=== PATIENT | female | born 1990 | race Caucasian/White ===

== ENCOUNTER 2017-06-12 19:13 | Inpatient (IN) | payer OTHER ==
[~2017-06-12] VITALS: Ht 175.3 cm; Wt 199.0 kg
--- NOTE | ~2017-06-12 | CT2 ---
[facility] A Service of [facility] & [facility] RADIOLOGY TEXT RESULTS PATIENT: RICARDO BRADLEY LOCATION: C2A 227-01 : [birth year] UNIT #: [id number] AGE: [address]: Gonsalo Milian III, MD SEX: F ORDER DR: [id number] [facility] [address] [facility]. [place], [place] [address] [id number] I MR#: [id number] Acc #: [id number] NAME: RICARDO BRADLEY : 1990 SEX: F STUDY DATE/TIME: 06/12/2017 22:20 UNIT: A ROOM: 227 STUDY DESCRIPTION: CT Abd and Pelv W Cont Attending Physician: Gonsalo Milian III, M.D. Ordering Physician: Kay Dyson P.A.-C. Primary Care Physician: Primary Care Physician No MEDICAL IMAGING REPORT This report is preliminary unless electronic signature is present EXAM CT abdomen and pelvis, 06/12/2017 at 22:20 INDICATIONS Abdominal pain for 1 week with shortness of air. TECHNIQUE Axial images were obtained through the abdomen and pelvis following IV contrast administration. Multiplanar reformats were obtained. No comparison abdomen or pelvis CT. This CT exam was performed with one or more of the following radiation dose reduction techniques: automatic exposure control, adjustment of mA and/or kV according to patient size, and iterative reconstruction. FINDINGS ABDOMEN: For description of findings in the lung bases, please see the chest CT report dictated separately. Gallbladder unremarkable. Solid organs are normal. Unopacified GI tract is normal. No free fluid is seen. PELVIS: IUD present in the uterus. Urinary bladder is normal. There is marked abnormal fat stranding centered in the right hemipelvis. No well-defined abscess is seen in this location. Exam is degraded by the lack of oral contrast. The terminal ileum appears normal. Sigmoid colon appears normal. The cecum is normal. This could potentially reflect small bowel inflammation extending into the mesentery. Acute appendicitis is in the differential diagnosis. A clearly enlarged appendix is not seen. This could also potentially be related to the right ovary. Correlate with patient physical exam findings and laboratory data. If ovarian lesion is of concern, consider pelvic ultrasound. IMPRESSION [facility] A Service of [facility] & [facility] RADIOLOGY TEXT RESULTS PATIENT: RICARDO BRADLEY LOCATION: A 227-01 : [birth year] UNIT #: [id number] AGE: [address]: Gonsalo Milian III, MD SEX: F ORDER DR: 1. The abdomen is normal. 2. IUD in the uterus. 3. Marked inflammatory fat stranding in the right central pelvis. Exact etiology is unclear, especially given the lack of oral contrast. A primary enteritis is favored. However, potentially ruptured acute appendicitis could have this appearance. It could theoretically be related to the right ovary as well although this is felt to be less likely. No clearly enlarged fluid-filled appendix is identified. The adjacent cecum and terminal ileum are normal. The sigmoid colon is normal. If ovarian pathology is of concern, this could be assessed with ultrasound. Otherwise, consider surgical consult. Dictated by... Maurizio Kaur Jr., M.D. THIS IS AN ELECTRONICALLY VERIFIED REPORT Maurizio Kaur Jr., M.D. at 06/13/2017 6:00 AM MILKA/christopher TD: 06/13/2017 04:06 JOB #: [id number] MEDICAL IMAGING REPORT Page 1 of 1 COPY
--- NOTE | ~2017-06-12 | CO ---
Unit #: [id number] #: [id number] Patient: RICARDO BRADLEY [id number] [address] [address] [id number] I MR#: [id number] NAME: RICARDO BRADLEY ROOM: 478 Age: 26 Sex: F Admission Date: 06/13/2017 : 1990 Attending Physician: Gonsalo Milian III, M.D. Primary Care Physician: Ghazal Primary Care Physician Consultation Date: 06/16/2017 CONSULTATION REPORT REASON FOR CONSULTATION Medical management. HISTORY OF PRESENT ILLNESS The patient is a 26-year-old female with past medical history of hypothyroidism, morbid obesity who was admitted by Dr. Milian on June 13 for abdominal pain. The patient states that she had a one-week history of abdominal pain in the right lower quadrant. She ultimately underwent appendectomy. She also reports irregular menses as well as vaginal discharge. She was checked for bacterial vaginosis as well as Trichomonas in the emergency department that were both negative. Gonorrhea and Chlamydia were also checked. She was noted to be positive for gonorrhea. HIPS was consulted for that reason. The patient states that she is sexually active with her boyfriend who is HIV positive. She does not use any type of protection. She does have Mirena for control purposes. She states that she has been having vaginal discharge for about a week. She was treated for Chlamydia a month ago. PAST MEDICAL HISTORY 1. Hypothyroidism. 2. Dysfunctional uterine bleeding. PAST SURGICAL HISTORY 1. Appendectomy. 2. Tonsillectomy. 3. Elective . SOCIAL HISTORY The patient lives with her boyfriend. She smokes a half pack cigarettes daily. She denies illicit drug use. She states that she is a daily drinker and typically drinks five to six shots daily. FAMILY HISTORY Notable for there being no family history of hypertension or diabetes. ALLERGIES None. HOME MEDICATIONS None. REVIEW OF SYSTEMS Unit #: [id number] #: [id number] Patient: RICARDO BRADLEY A complete review of systems is negative except as indicated in the HPI. DIAGNOSTIC STUDIES LABORATORY: Urine culture from June 12, 2017 showed no growth after 48 hours. IMAGING: CT of the abdomen and pelvis from June 12, 2017, showed an IUD within the uterus, marked inflammatory stranding in the right central pelvis. PHYSICAL EXAMINATION VITAL SIGNS: Temperature 98.4, pulse 59, respirations 20, blood pressure 135/82, oxygen saturation 98% on room air. GENERAL: The patient is a female who is awake and alert in no acute distress. HEENT: The head is atraumatic. Mucous membranes are moist. NECK: Supple. Trachea is midline. CARDIOVASCULAR: Regular rate and rhythm. LUNGS: Clear to auscultation bilaterally with no increased work of breathing. ABDOMEN: Obese, soft with bowel sounds present in all four quadrants. She does have Steri-Strips in place. EXTREMITIES: Nontender with no pedal edema. NEUROLOGIC: The patient is awake and alert. She follows commands. PSYCHIATRIC: Mood and affect are normal. The patient is cooperative. SKIN: Skin of examined areas is warm and dry. ASSESSMENT The patient is a 26-year-old female with: 1. Status post appendectomy. 2. Gonorrhea: The patient does not use protection. She was recently treated for Chlamydia. Her boyfriend is human immunodeficiency virus positive. She refuses any additional sexually transmitted disease workup today including human immunodeficiency virus and hepatitis panel. She prefers to followup at the specialty clinic. 3. Dysfunctional uterine bleeding. 4. Morbid obesity with a body mass index of 64. 5. Hypothyroidism. 6. Alcohol abuse. 7. Tobacco abuse. PLAN Regarding gonorrhea, I have ordered Rocephin as well as azithromycin. The patient refused any additional sexually transmitted disease testing including human immunodeficiency virus or hepatitis. I advised using condoms. She will follow up in the specialty clinic. She has also been given a prescription for Levaquin by surgery. I would also advise that the patient follow up with her director behavioral health regarding abnormal CT and stranding in the right central pelvis. Dictated by... Padmini Martin M.D. DIONNE/jas TD: 06/16/2017 13:25 Unit #: [id number] #: [id number] Patient: RICARDO BRADLEY JOB #: [id number] CONSULTATION REPORT Page 1 of 1 X Padmini Martin MD X CONSULTATION REPORT
--- NOTE | ~2017-06-12 | DS ---
Unit #: [id number] #: [id number] Patient: RICARDO BRADLEY [id number] [address] [address] [id number] I MR#: [id number] NAME: RICARDO BRADLEY ROOM: 478 Age: 26 Sex: F Admission Date: 06/13/2017 : 1990 Discharge Date: 06/16/2017 Attending Physician: Gonsalo Milian III, M.D. Primary Care Physician: Ghazal Primary Care Physician DISCHARGE SUMMARY DIAGNOSES 1. Pelvic inflammatory disease. 2. Periappendicitis. PROCEDURE Laparoscopic appendectomy. HOSPITAL COURSE The patient is a 26-year-old lady who presented with right lower quadrant abdominal pain. CT scan showed inflammatory changes of the right lower quadrant but not a discrete appendicitis. She underwent the aforementioned procedures. She was found to have an inflammatory process in right lower quadrant, likely pelvic inflammatory disease. Pathology returned periappendicitis. Her hospital course was basically one of antibiotics. She defervesced. Her white count came down to normal and her pain improved. DISPOSITION The patient will be discharged home in good condition. DIET She is to follow a regular diet as tolerated. ACTIVITY Activity levels were discussed. FOLLOWUP She is to follow up with Dr. Adair in two weeks. DISCHARGE MEDICATIONS Medications are regular home medications and [place] 7.5 mg q.4 p.r.n., Levaquin 500 mg q.24 x7 days. Dictated by... Bhupinder Thomason/jas TD: 06/16/2017 08:44 JOB #: [id number] Unit #: [id number] #: [id number] Patient: RICARDO BRADLEY DISCHARGE SUMMARY Page 1 of 1 X Percy Adair MD DISCHARGE SUMMARY
--- NOTE | ~2017-06-12 | CR63 ---
[facility] A Service of [facility] & [facility] RADIOLOGY TEXT RESULTS PATIENT: RICARDO BRADLEY LOCATION: [place] [address] : [birth year] UNIT #: [id number] AGE: [address]: Gonsalo Milian III, MD SEX: F ORDER DR: [id number] [facility] [address] [facility]. [place], [place] [address] [id number] E MR#: [id number] Acc #: [id number] NAME: RICARDO BRADLEY : 1990 SEX: F STUDY DATE/TIME: 06/12/2017 21:33 UNIT: [facility] ROOM: STUDY DESCRIPTION: CR Chest 2 View Attending Physician: Amarjit Daniel D.O. Ordering Physician: Kay Dyson P.A.-C. Primary Care Physician: Primary Care Physician No MEDICAL IMAGING REPORT This report is preliminary unless electronic signature is present EXAM Chest PA and lateral, 06/12/2017 HISTORY Shortness of breath, chest pain when breathing. Symptoms for 1 week. FINDINGS PA and lateral examination of the chest upright shows a good expansion of the parenchyma with a normal distribution of the pulmonary vascularity. There is no indication of congestion, effusion, infiltrate, tumor, or nodular density. The pleural reflections and diaphragmatic contours are normal. The cardiac silhouette and mediastinal anatomy is within normal limits. IMPRESSION Normal chest. Dictated by... Alfonzo Farris M.D. THIS IS AN ELECTRONICALLY VERIFIED REPORT Alfonzo Farris M.D. at 06/13/2017 2:09 PM AMALIA/christopher TD: 06/12/2017 23:44 JOB #: [id number] MEDICAL IMAGING REPORT Page 1 of 1 COPY
--- NOTE | ~2017-06-12 | CO ---
Unit #: [id number] #: [id number] Patient: RICARDO BRADLEY [id number] [address] [address] [id number] I MR#: [id number] NAME: RICARDO BRADLEY ROOM: 478 Age: 26 Sex: F Admission Date: 06/13/2017 : 1990 Attending Physician: Gonsalo Milian III, M.D. Consultation Date: 06/16/2017 CONSULTATION REPORT 2nd REVISION See Addendum REASON FOR CONSULTATION Medical management. HISTORY OF PRESENT ILLNESS The patient is a 26-year-old female with past medical history of hypothyroidism, morbid obesity who was admitted by Dr. Milian on June 13 for abdominal pain. The patient states that she had a one-week history of abdominal pain in the right lower quadrant. She ultimately underwent appendectomy. She also reports irregular menses as well as vaginal discharge. She was checked for bacterial vaginosis as well as Trichomonas in the emergency department that were both negative. Gonorrhea and Chlamydia were also checked. She was noted to be positive for gonorrhea. HIPS was consulted for that reason. The patient states that she is sexually active with her boyfriend who is HIV positive. She does not use any type of protection. She does have Mirena for control purposes. She states that she has been having vaginal discharge for about a week. She was treated for Chlamydia a month ago. PAST MEDICAL HISTORY 1. Hypothyroidism. 2. Dysfunctional uterine bleeding. PAST SURGICAL HISTORY 1. Appendectomy. 2. Tonsillectomy. 3. Elective . SOCIAL HISTORY The patient lives with her boyfriend. She smokes a half pack cigarettes daily. She denies illicit drug use. She states that she is a daily drinker and typically drinks five to six shots daily. FAMILY HISTORY Notable for there being no family history of hypertension or diabetes. ALLERGIES None. HOME MEDICATIONS Unit #: [id number] #: [id number] Patient: RICARDO BRADLEY None. REVIEW OF SYSTEMS A complete review of systems is negative except as indicated in the HPI. DIAGNOSTIC STUDIES LABORATORY: Urine culture from June 12, 2017 showed no growth after 48 hours. IMAGING: CT of the abdomen and pelvis from June 12, 2017, showed an IUD within the uterus, marked inflammatory stranding in the right central pelvis. PHYSICAL EXAMINATION VITAL SIGNS: Temperature 98.4, pulse 59, respirations 20, blood pressure 135/82, oxygen saturation 98% on room air. GENERAL: The patient is a female who is awake and alert in no acute distress. HEENT: The head is atraumatic. Mucous membranes are moist. NECK: Supple. Trachea is midline. CARDIOVASCULAR: Regular rate and rhythm. LUNGS: Clear to auscultation bilaterally with no increased work of breathing. ABDOMEN: Obese, soft with bowel sounds present in all four quadrants. She does have Steri-Strips in place. EXTREMITIES: Nontender with no pedal edema. NEUROLOGIC: The patient is awake and alert. She follows commands. PSYCHIATRIC: Mood and affect are normal. The patient is cooperative. SKIN: Skin of examined areas is warm and dry. ASSESSMENT The patient is a 26-year-old female with: 1. Status post appendectomy. 2. Gonorrhea: The patient does not use protection. She was recently treated for Chlamydia. Her boyfriend is human immunodeficiency virus positive. She refuses any additional sexually transmitted disease workup today including human immunodeficiency virus and hepatitis panel. She prefers to followup at the specialty clinic. 3. Dysfunctional uterine bleeding. 4. Morbid obesity with a body mass index of 64. 5. Hypothyroidism. 6. Alcohol abuse. 7. Tobacco abuse. PLAN Regarding gonorrhea, I have ordered Rocephin as well as azithromycin. The patient refused any additional sexually transmitted disease testing including human immunodeficiency virus or hepatitis. I advised using condoms. She will follow up in the specialty clinic. She has also been given a prescription for Levaquin by surgery. I would also advise that the patient follow up with her shaper and presser regarding abnormal CT and stranding in the right central pelvis. Dictated by... Bhupinder Carey Unit #: [id number] #: [id number] Patient: RICARDO BRADLEY TD: 06/16/2017 13:25 JOB #: [id number] ADDENDUM PLAN (CONTINUED) I have also given the patient a prescription for doxycycline 100 mg p.o. b.i.d. for 14 days. I have advised that she follow up with her shaper and presser regarding possible PID and specifically regarding if the patient needs to have her IUD removed. The patient states that she sees Dr. Gavin with [facility] and will follow up with him this week. As stated above, she also received Rocephin, as well as azithromycin here in the hospital for gonorrhea and possible PID. The patient expressed understanding of the treatment plan. She agrees to follow up with both the shaper and presser and the speciality clinic. Dictated by... Padmini Martin M.D. Allison TD: 06/16/2017 14:10 JOB #: [id number] CONSULTATION REPORT Page 1 of 1 X Padmini Martin MD X CONSULTATION REPORT
--- NOTE | ~2017-06-12 | BMI ---
[facility] Nutrition Therapy DATE: 06/13/17 Patient: RICARDO BRADLEY Physician: COLBY Address: [address] Room/Bed: [address] [place] [address], Zip: [place] [address] Admit Date: 06/13/17 Date of : [birth year] Height: 5 9 Weight: 438 199 HIGH BMI NOTE: DX: 26 y/o female admitted with abdominal pain ANTHROPOMETRICS: Ht: 69", Wt: 199 kg, BMI: 64 (stage III obese) DIET: NPO INTERVENTION: Restricted diet, meds/fluids per MD RECOMMENDATIONS: Once medically feasible advance to healthy heart diet to promote a gradual weight loss towards a healthy BMI range. Respectfully, Ketty Kelsey RD, LD Food and Nutritional Services [facility] cc: client file
--- NOTE | ~2017-06-12 | CO ---
Unit #: [id number] #: [id number] Patient: RICARDO BRADLEY [id number] [place] [id number] [facility]. [place], [place] [address] [id number] I MR#: [id number] NAME: RICARDO BRADLEY. ROOM: 227 Age: 26 Sex: F Admission Date: 06/13/2017 : 1990 Attending Physician: Gonsalo Milian III, M.D. Primary Care Physician: No Primary Care Physician Consultation Date: 06/13/2017 CONSULTATION REPORT CHIEF COMPLAINT Right lower quadrant pain. HISTORY OF PRESENT ILLNESS This is a 26-year-old lady who is morbidly obese, who has had a one week history of crampy lower abdominal pain that she initially attributed to gas and constipation. It started last and she has had trouble going to work because the pain has gotten worse. It is worse with deep breathing. She also for the last 24 hours has had a sharp stabbing pain in the right lower quadrant. She denies any burning with urination or any nausea or vomiting. She does say she does appreciate the pain a little bit more when she does urinate. PAST MEDICAL HISTORY Significant for hypothyroidism, but she is not taking any medications for it. PAST SURGICAL HISTORY She has had an and tonsillectomy. ALLERGIES No known drug allergies. MEDICATIONS She is on no medications. SOCIAL HISTORY She does smoke. She denies any alcohol use. FAMILY HISTORY Negative for any abdominal cancers. REVIEW OF SYSTEMS Negative for fevers, weight loss or jaundice since otherwise as above. PHYSICAL EXAMINATION VITAL SIGNS: Temperature is 97.9, heart rate 63, respiratory rate 18, blood pressure 156/92, BMI is 64. She is in no acute distress. HEENT: Pupils equal, round, reactive to light and accommodation. Extraocular muscles are intact. NECK: Without masses or bruits. LUNGS: Show good breath sounds bilaterally with equal air exchange. CARDIAC: Regular rate and rhythm without murmur. ABDOMEN: Soft, morbidly obese, nondistended and she has 3+ tenderness in Unit #: [id number] #: [id number] Patient: RICARDO BRADLEY the right lower quadrant. EXTREMITIES: Without edema or cyanosis. NEUROLOGIC: She is alert and oriented. There is no focal deficits. DIAGNOSTIC STUDIES LABORATORY STUDIES: White blood count was 14,000, on admission is 9.7 this morning hemoglobin is 12.8. Urinalysis did show 3+ leukocyte esterase and bacteria but also there was some squamous cells present. IMAGING STUDIES: CT scan was equivocal but couldn't rule out appendicitis. OVERALL IMPRESSION This is a 26-year-old lady who has right lower quadrant pain. It would be hard to say that her urinalysis would be causing this degree of right lower quadrant tenderness on exam. Certainly there is a possibility that she could have an appendicitis versus a ruptured ovarian cyst. I discussed diagnostic laparoscopy, possible appendectomy and she understands the procedure and wishes to proceed. Dictated by... Gonsalo Milian III, M.D. VCL/cameron TD: 06/13/2017 07:24 JOB #: [id number] CONSULTATION REPORT Page 1 of 1 X Gonsalo Milian III, MD X CONSULTATION REPORT
--- NOTE | ~2017-06-12 | CT16 ---
[facility] A Service of [facility] & [facility] RADIOLOGY TEXT RESULTS PATIENT: RICARDO BRADLEY LOCATION: C2A 227- : [birth year] UNIT #: [id number] AGE: [address]: Gonsalo Milian III, MD SEX: F ORDER DR: [id number] [facility] [address] [facility]. [place], [place] [address] [id number] I MR#: [id number] Acc #: [id number] NAME: RICARDO BRADLEY : 1990 SEX: F STUDY DATE/TIME: 06/12/2017 22:20 UNIT: [facility] ROOM: [facility] STUDY DESCRIPTION: CT Angio Chest for PE Attending Physician: Gonsalo Milian III, M.D. Ordering Physician: Kay Dyson P.A.-C. Primary Care Physician: Primary Care Physician No MEDICAL IMAGING REPORT This report is preliminary unless electronic signature is present EXAM CT scan of the chest with contrast 06/12/2017 HISTORY Shortness of breath, hurts to breathe. Left side chest pain for 1 week. Elevated D-dimer today 2044. Evaluate for pulmonary embolus. TECHNIQUE Spiral CT was performed through the chest following intravenous contrast administration using pulmonary embolus protocol. 3-D reconstructions of the chest were then performed following intravenous contrast administration. All CT scans at this facility use dose modulation, iterative reconstruction, and/or weight-based dosing to reduce radiation dose to as low as reasonably achievable. FINDINGS There is no CT evidence for pulmonary embolus. The heart is normal in size. There is a 3.9 cm x 3.7 cm cystic lesion in the anterior mediastinum. 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 Clinical correlation is recommended. Additional differential considerations include thymoma. Recommend follow-up chest CT with contrast in 6 months to assess for stability. No significant adenopathy is seen. There are no pleural effusions. The lungs are clear. IMPRESSION 1. No CT evidence for pulmonary embolus. 2. 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 Clinical correlation recommended. Additional diagnostic consideration includes thymoma. Recommend follow-up chest CT in 6 months to assess for stability. [facility] A Service of [facility] & [facility] RADIOLOGY TEXT RESULTS PATIENT: RICARDO BRADLEY LOCATION: [facility] 227-01 : [birth year] UNIT #: [id number] AGE: [address]: Gonsalo Milian III, MD SEX: F ORDER DR: Dictated by... Alfonzo Farris M.D. THIS IS AN ELECTRONICALLY VERIFIED REPORT Alfonzo Farris M.D. at 06/13/2017 2:35 PM AMALIA/christopher TD: 06/13/2017 04:51 JOB #: [id number] MEDICAL IMAGING REPORT Page 1 of 1 COPY
--- NOTE | ~2017-06-12 | OR ---
Unit #: [id number] #: [id number] Patient: RICARDO BRADLEY [id number] [address] [place], [place] [address] [id number] MR#: [id number] NAME: RICARDO BRADLEY. ROOM: [id number] Date of Procedure: 06/13/2017 Admission Date: 06/13/2017 Surgeon: Percy Adair M.D. : 1990 Attending Physician: Gonsalo Milian III, M.D. Primary Care Physician: Primary Care Physician No OPERATIVE REPORT PREOPERATIVE DIAGNOSIS Right lower quadrant pain, possible appendicitis. POSTOPERATIVE DIAGNOSES 1. Periappendicitis. 2. Tubo-ovarian abscess. PROCEDURES PERFORMED 1. Diagnostic laparoscopy. 2. Laparoscopic drainage of right lower quadrant abscess. 3. Laparoscopic appendectomy. [employer] SAL[employer] None. ANESTHESIA General. ESTIMATED BLOOD LOSS 50 mL. IV FLUIDS 900 crystalloid. COMPLICATIONS None. INDICATIONS FOR PROCEDURE The patient is a 26-year-old, who presents with right lower quadrant abdominal pain. Physical exam is consistent with early appendicitis versus gynecological problem. She presents for diagnostic laparoscopy. DESCRIPTION OF PROCEDURE The patient was taken to the operating theater and placed in a supine position. General anesthesia was induced. Her abdomen was prepped and draped. A 5-mm Optiview trocar was placed in left of the umbilicus. The abdomen was insufflated to 15 mmHg with CO2. I placed a right lower quadrant 12 mm and left lower quadrant 5 mm. General inspection of the abdomen revealed bloody purulent fluid in the right lower quadrant. There appeared to be a phlegmon down in the right lower quadrant at the area where the ovary and the tubes were. There appeared to be a gross inflammation and multiple interloop abscesses. These were broken down. I Unit #: [id number] #: [id number] Patient: RICARDO BRADLEY identified the cecum as well as the appendix. The appendix was grossly inflamed, but it was unsure whether or not this was the etiology or secondary to a tubo-ovarian process. I was able to mobilize the appendix, fired a TOMASZ stapler across the mesoappendix as well as the base of the appendix. This was then placed in an Endobag and removed. I irrigated thoroughly with normal saline and aspirated all fluids dry including sending some cultures. I saw no abnormalities of the sigmoid colon, although there was a global inflammation of the small bowel. I saw no evidence of perforation. I then left a Jadiel-Bolden drain, brought out through the left lower quadrant port site, secured in place with 2-0 silk. I then closed the fascia in the right lower quadrant with Endo Close and the skin with 4-0 suture. The patient tolerated the procedure well and was sent to recovery room in good condition. Dictated by... Bhupinder Thomason/ceci TD: 06/14/2017 06:50 JOB #: [id number] OPERATIVE REPORT Page 1 of 1 X Percy Adair MD X PROCEDURE OPERATIVE NOTE
[~2017-06-12 19:13] MED LIST: ADDERALL PO; AMOXIL500 M1 PO; BACTRIM DS TABL1 TA1 PO; FIRST-PROG25 MG/SUPP; MACROBID100 MG PO; PRENATAL VITAMI1 TA3 PO; PYRIDIUM PO; SYNTHROID PO; SYNTHROID0.1 MG; VICODIN 5/500 T1 TAB PO
[2017-06-12 20:25] LABS: URINE SOURCE CLEAN CATCH
[2017-06-12 20:30] LABS: URINE APPEARANCE TURBID; URINE BILIRUBIN NEG (NEG); URINE BLOOD 3+ (NEG); URINE COLOR YELLOW; URINE GLUCOSE NEG (NEG); URINE KETONE NEG (NEG); URINE LEUKOCYTE ESTERASE 3+ (NEG); URINE NITRATE NEG (NEG); URINE PROTEIN 1+ (NEG); URINE SPECIFIC GRAVITY 1.009 (1.003-1.035); URINE UROBILINOGEN 0.2 MG/DL (NEG)
[2017-06-12 20:35] LABS: CULTURE INDICATED? YES; URINE BACTERIA AUWI 4+ (NEGATIVE); URINE SQUAMOUS EPITHELIAL CELL MOD /[HPF]; UWBCS1 AUWI INNUM (0-5)
[2017-06-12 21:13] LABS: BASOPHIL# 0.2 X10e3 (0-0.3); BASOPHIL% 1.3 % (0-2.5); EOSINOPHIL# 0.1 X10e3 (0-0.7); EOSINOPHIL% 0.9 % (0.0-7.0); HEMATOCRIT 39.5 % (35.0-45.0); HEMOGLOBIN 13.2 gm/dL (12.0-16.0); LYMPHOCYTE# 1.8 X10e3 (1.0-3.5); MEAN CELL VOLUME 100.6 FL (83-96); MEAN CORPUSCULAR HEMOGLOBIN 33.8 PG (28-34); MEAN CORPUSCULAR HGB CONC 33.6 g/dL (30-36); MEAN PLATELET VOLUME 8.4 FL (6.5-11.5); MONOCYTE# 1.1 X10e3 (0-1.0); MONOCYTE% 7.5 % (3.0-12.0); NEUTROPHIL# 10.9 X10e3 (1.5-7.1); NEUTROPHIL% 77.3 % (40-75); PLATELET COUNT 261 X10e3 (140-420); RED BLOOD COUNT 3.92 X10e (3.90-5.30); RED CELL DISTRIBUTION WIDTH 13.2 % (11.0-15.5); WHITE BLOOD COUNT 14.1 X10e3 (4.0-10.5)
[2017-06-12 21:20] LABS: DIFF IND NO
[2017-06-12 21:35] LABS: ALBUMIN SERUM 3.5 g/dL (3.5-5.0); BILIRUBIN, DIRECT 0.1 mg/dL (0.0-0.2); BILIRUBIN,INDIRECT 0.6 mg/dL (0.0-0.9); BILIRUBIN,TOTAL 0.7 mg/dL (0.2-2.0); BUN/CREATININE RATIO 7.27; CALCIUM SERUM 8.5 mg/dL (8.4-10.2); CREATININE SERUM 1.1 mg/dL (0.6-1.4); GLOM FILT RATE Estimated 68.8 mL/min (>60); POTASSIUM 3.2 mmol/L (3.5-5.1); PROTEIN TOTAL SERUM 7.4 g/dL (6.0-8.3)
[2017-06-13] MEDS ORDERED: NO MEDICATIONS (04:05)
[2017-06-13 05:33] LABS: HEMATOCRIT 37.6 % (35.0-45.0); HEMOGLOBIN 12.8 gm/dL (12.0-16.0); MEAN CELL VOLUME 102.3 FL (83-96); MEAN CORPUSCULAR HEMOGLOBIN 34.9 PG (28-34); MEAN CORPUSCULAR HGB CONC 34.1 g/dL (30-36); MEAN PLATELET VOLUME 8.4 FL (6.5-11.5); RED BLOOD COUNT 3.68 X10e (3.90-5.30); RED CELL DISTRIBUTION WIDTH 13.4 % (11.0-15.5); WHITE BLOOD COUNT 9.7 X10e3 (4.0-10.5)
[2017-06-14 02:34] LABS: BASOPHIL# 0.2 X10e3 (0-0.3); BASOPHIL% 1.3 % (0-2.5); EOSINOPHIL% 0.1 % (0.0-7.0); HEMATOCRIT 41.5 % (35.0-45.0); HEMOGLOBIN 13.6 gm/dL (12.0-16.0); LYMPHOCYTE# 1.1 X10e3 (1.0-3.5); LYMPHOCYTE% 7.6 % (17.0-45.0); MEAN CELL VOLUME 103.2 FL (83-96); MEAN CORPUSCULAR HEMOGLOBIN 33.8 PG (28-34); MEAN CORPUSCULAR HGB CONC 32.7 g/dL (30-36); MEAN PLATELET VOLUME 8.7 FL (6.5-11.5); MONOCYTE# 0.6 X10e3 (0-1.0); MONOCYTE% 4.5 % (3.0-12.0); NEUTROPHIL% 86.5 % (40-75); PLATELET COUNT 299 X10e3 (140-420); RED BLOOD COUNT 4.02 X10e (3.90-5.30); RED CELL DISTRIBUTION WIDTH 13.3 % (11.0-15.5); WHITE BLOOD COUNT 13.8 X10e3 (4.0-10.5)
[2017-06-14 02:36] LABS: DIFF IND NO
[2017-06-14 03:01] LABS: CALCIUM SERUM 8.6 mg/dL (8.4-10.2); CREATININE SERUM 1.2 mg/dL (0.6-1.4); GLOM FILT RATE Estimated 61.9 mL/min (>60); POTASSIUM 4.1 mmol/L (3.5-5.1)
[2017-06-15 03:14] LABS: HEMATOCRIT 39.9 % (35.0-45.0); HEMOGLOBIN 13.3 gm/dL (12.0-16.0); MEAN CELL VOLUME 103.5 FL (83-96); MEAN CORPUSCULAR HEMOGLOBIN 34.5 PG (28-34); MEAN CORPUSCULAR HGB CONC 33.3 g/dL (30-36); MEAN PLATELET VOLUME 8.6 FL (6.5-11.5); RED BLOOD COUNT 3.86 X10e (3.90-5.30); RED CELL DISTRIBUTION WIDTH 13.2 % (11.0-15.5)
[2017-06-15 12:23] LABS: CHLAMYDIA TRACH Not Detected (Not Detected); N GONOR Detected (Not Detected)
[2017-06-16] MEDS ORDERED: LEVAQUIN PO (07:24)
[2017-06-16] MEDS ORDERED: HYDROCODON-ACE1 EAC9 PO (07:25)
[2017-06-16] MEDS ORDERED: DOXYCYCLINE HY100 M3 PO (14:03)
== END 2017-06-16 14:38 | disposition home or self-care (01) | DRG 749 ==
LOC: CED 19:13 → C4C 06-13 01:40 → CED 06-13 01:40 → CEDOF 06-13 01:40 → C4C 06-13 01:40 → C2A 06-13 03:53 → CEDOF 06-13 03:53 → C4C 06-13 16:30 → C2A 06-13 16:30 → C4C 06-16 14:38
PROVIDERS: Physician Assistant; Surgery
PROC: B32TYZZ Computerized Tomography (CT Scan) of Left Pulmonary Artery using Other Contrast (ICD-10-PCS; 2017-06-13)
PROC: B32SYZZ Computerized Tomography (CT Scan) of Right Pulmonary Artery using Other Contrast (ICD-10-PCS; 2017-06-13)
PROC: 0DTJ4ZZ Resection of Appendix, Percutaneous Endoscopic Approach (ICD-10-PCS; principal; 2017-06-13 17:30)
DX: N73.9 Female pelvic inflammatory disease, unspecified (principal); A54.9 Gonococcal infection, unspecified; Z68.44 Body mass index [BMI] 60.0-69.9, adult; K37 Unspecified appendicitis; E03.9 Hypothyroidism, unspecified; E66.01 Morbid (severe) obesity due to excess calories; F17.210 Nicotine dependence, cigarettes, uncomplicated; N93.8 Other specified abnormal uterine and vaginal bleeding; F10.10 Alcohol abuse, uncomplicated; N70.93 Salpingitis and oophoritis, unspecified
CPT/HCPCS: 36415; 71020; 71275; 74177; 80048; 80076; 81003; 83690; 84703; 85025; 85027; 85379; 87070; 87086; 87205; 87491; 87591; 87808; 87905; 88304; 96361; 96365; 96375; 99285; J0131; J0330; J0696; J1100; J1644; J1885; J2250; J2270; J2405; J2543; J2550; J2710; J3010; Q9967